=== PATIENT | male | born 1985 | race Two or more races ===

== ENCOUNTER 2017-03-11 16:34 | Emergency (ER) | payer OTHER ==
[~2017-03-11] VITALS: Ht 185.4 cm; Wt 80.5 kg
[~2017-03-11 16:34] MED LIST: TRAMADOL HCL50 MG PO
[2017-03-11 17:13] VITALS: BP 115/67
[2017-03-11] MEDS ORDERED: CIPRO500 MG PO (19:53)
[2017-03-11] MEDS ORDERED: MOTRIN800 MG PO (19:53)
== END 2017-03-11 20:26 | disposition home or self-care (01) ==
LOC: EME 16:34
PROC: 3E0234Z Introduction of Serum, Toxoid and Vaccine into Muscle, Percutaneous Approach (ICD-10-PCS; principal; 2017-03-11)
DX: S91.331A Puncture wound without foreign body, right foot, initial encounter (principal); B35.3 Tinea pedis; W45.0XXA Nail entering through skin, initial encounter; Y93.89 Activity, other specified; Z23 Encounter for immunization; J45.909 Unspecified asthma, uncomplicated; F17.200 Nicotine dependence, unspecified, uncomplicated
CPT/HCPCS: 73630; 99281; 99284